=== PATIENT | male | born 1955 | race Caucasian/White ===

== ENCOUNTER 2019-10-09 18:52 | Emergency (ER) | payer SELFPAY ==
--- NOTE | 2019-10-09 20:56 | ER Document Report ---
ED Medical Screen (RME) - General Chief Complaint: Abdominal Pain Stated Complaint: SHORTNESS OF BREATH, LEFT FLANK PAIN Time Seen by Provider: 10/09/19 20:54 Mode of Arrival: Ambulatory Information source: Patient Notes: 64-year-old male with history of kidney stones presents emergency department with complaints of left flank pain radiating to his left lower quad. Denies fever vomiting diarrhea. Denies pain with void denies hematuria. Also complains of shortness of breath. Denies chest pain. Respiratory rate even unlabored left flank very tender to palpate I have greeted and performed a rapid initial assessment of this patient. A comprehensive ED assessment and evaluation of the patient, analysis of test results and completion of the medical decision making process will be conducted by additional ED providers. TRAVEL OUTSIDE OF THE [place] IN LAST 30 DAYS: No Physical Exam - Vital signs Vitals: Temp Pulse Resp BP Pulse Ox 97.9 F 69 16 158/84 H 98 10/09/19 19:35 10/09/19 19:35 10/09/19 19:35 10/09/19 19:35 10/09/19 19:35 Course - Vital Signs Vital signs: Temp Pulse Resp BP Pulse Ox 97.9 F 69 16 158/84 H 98 10/09/19 19:35 10/09/19 19:35 10/09/19 19:35 10/09/19 19:35 10/09/19 19:35
[2019-10-09 22:04] LABS: ABSOLUTE LYMPHOCYTES (AUTO) 1.1 10^3/uL (0.5-4.7); ABSOLUTE MONOCYTES (AUTO) 0.9 10^3/uL (0.1-1.4); BASOPHILS % (AUTO) 0.2 % (0-2); EOSINOPHILS % (AUTO) 0.3 % (0-6); HEMATOCRIT 44.9 % (37.9-51.0); LYMPHOCYTES % (AUTO) 11.1 % (13-45); MEAN CORPUSCULAR HEMOGLOBIN 29.6 pg (27.0-33.4); MEAN CORPUSCULAR HGB CONC 33.4 g/dL (32.0-36.0); MEAN CORPUSCULAR VOLUME 89 fl (80-97); MONOCYTES % (AUTO) 8.9 % (3-13); PLATELET COUNT 197 10^3/uL (150-450); RED BLOOD COUNT 5.06 10^6/uL (4.35-5.55); RED CELL DISTRIBUTION WIDTH 14.3 % (11.5-14.0); SEGMENTED NEUTROPHILS % (AUTO) 79.5 % (42-78); TOTAL CELLS COUNTED % (AUTO) 100 %; WHITE BLOOD COUNT 10.1 10^3/uL (4.0-10.5)
[2019-10-09 22:08] LABS: APPEARANCE,URINE CLEAR; BILIRUBIN,URINE NEGATIVE (NEGATIVE); COLOR,URINE YELLOW; GLUCOSE, URINE NEGATIVE (NEGATIVE); KETONES,URINE 20 mg/dL (NEGATIVE); LEUKOCYTE ESTERASE,URINE NEGATIVE (NEGATIVE); NITRITE,URINE NEGATIVE (NEGATIVE); PROTEIN,URINE 30 mg/dL (NEGATIVE); URINE SPECIFIC GRAVITY 1.032; UROBILINOGEN,URINE NEGATIVE mg/dL (<2.0)
--- NOTE | 2019-10-09 22:13 | RADIOLOGY REPORT (SQ) ---
EXAM DESCRIPTION: Two-view chest CLINICAL HISTORY: 64 years Male, SOB COMPARISON: None. FINDINGS: Cardiomediastinal silhouette is not enlarged. Mild hyperinflation. Possible emphysematous changes more obvious in the right upper lobe compared to the left upper lobe. No acute lung pleural bone abnormality. IMPRESSION: Possible emphysema. No acute findings.
[2019-10-09 22:18] LABS: ALBUMIN 4.4 g/dL (3.5-5.0); ALKALINE PHOSPHATASE 90 U/L (38-126); ANION GAP 14 (5-19); ASPARTATE AMINO TRANSFERASE 24 U/L (17-59); BILIRUBIN,DIRECT 0.3 mg/dL (0.0-0.4); BILIRUBIN,TOTAL 0.5 mg/dL (0.2-1.3); BLOOD UREA NITROGEN 23 mg/dL (7-20); CALCIUM 9.6 mg/dL (8.4-10.2); CARBON DIOXIDE 24 mmol/L (22-30); CHLORIDE 105 mmol/L (98-107); GLUCOSE 106 mg/dL (75-110); POTASSIUM 4.1 mmol/L (3.6-5.0); TOTAL PROTEIN 7.6 g/dL (6.3-8.2)
--- NOTE | 2019-10-09 22:23 | RADIOLOGY REPORT (SQ) ---
EXAM DESCRIPTION: CLINICAL HISTORY: 64 years Male LEFT FLANK PAIN COMPARISON: None TECHNIQUE: Axial images without IV contrast. Sagittal coronal reconstruction. This exam was performed according to our departmental dose-optimization program, which includes automated exposure control, adjustment of the mA and/or kV according to patient size and/or use of iterative reconstruction technique.. FINDINGS: Lung bases are unremarkable. Mild fatty liver. Spleen, pancreas, biliary system, adrenal glands, para-aortic regions are unremarkable. Mild atherosclerotic aorta mainly distally.. Mild atherosclerotic origin of both renal arteries greater on the right. Normal size kidneys. Question minimal right renal caliectasis versus presence of small parapelvic cysts. There is moderate left hydronephrosis predominantly lower pole. Possibly of additional small left renal parapelvic cysts is not excluded. The proximal left ureter is dilated. There is a stone in the mid left ureter level off the iliac crests. Measures 4.3 x 3.6 mm in transverse and AP diameter. 7.4 mm in length. Associated with thickening of the ureteric wall in that region. Mildly increased colonic fluid without significant dilatation. Small bowel loops are unremarkable. Moderate stenosis at L4-5 with greater right foraminal stenosis. CT of the pelvis demonstrates unremarkable urinary bladder. Prostate not enlarged. Bowel loops are unremarkable. No adenopathy or free fluid. IMPRESSION: 1. Subacute left hydronephrosis and proximal left hydroureter caused by mildly large stone in the mid left ureter. Thickening of the wall of the ureter adjacent to the stone. Very minimal left renal swelling. 2. Cystic structures in the right kidney represent either minimal caliectasis or small parapelvic cysts. No overt acute right renal abnormality. 3. Fatty liver. 4. Atherosclerotic disease including origin of both renal arteries greater on the right.
--- NOTE | 2019-10-09 23:16 | ER Document Report ---
Doctor's Note Notes: 10/09/19 23:15 64-year-old male patient that I was asked to re-round on as he is still waiting in the lobby. Results reviewed. Patient has a kidney stone with hydronephrosis and hydroureter. Orders placed for pain medication, nausea medication and IV fluids. Charge nurse made aware of patient's status.
[2019-10-09] MEDS ORDERED: KETOROLAC TROMETHAMINE INJ/PF 30 MG/1 ML SDV IV ONE (23:17)
[2019-10-09] MEDS ORDERED: ONDANSETRON HCL INJ/PF 4 MG/2 ML SDV IV ONE (23:17)
[2019-10-09] MEDS ORDERED: NORMAL SALINE 1000 ML 1,000 ML IV ONE (23:17)
[2019-10-10] MEDS ORDERED: TAMSULOSIN HCL 0.4 MG CAP.SR.24H PO ONE (00:03)
[2019-10-10] MEDS ORDERED: NORMAL SALINE 1000 ML 1,000 ML IV ONE (00:07)
[2019-10-10] MEDS ORDERED: OXYCODONE-ACETAMINOPHEN 5-325 MG TABLET PO ONE (00:08)
[2019-10-10] MEDS ORDERED: PROMETHAZINE HCL 25 MG TABLET PO ONE (00:08)
--- NOTE | 2019-10-10 01:25 | ER Document Report ---
ED GI/ - General Chief Complaint: Abdominal Pain Stated Complaint: SHORTNESS OF BREATH, LEFT FLANK PAIN Time Seen by Provider: 10/09/19 20:54 Primary Care Provider: ULISES BARTON MD [NO LOCAL MD] - Follow up tomorrow Mode of Arrival: Ambulatory Information source: Patient Notes: 64-year-old male presented to ED for complaint of left flank pain radiating to left lower quadrant. He denies any fever nausea or vomiting. He does have a history of kidney stones. He states he did not have any pain or discomfort with urination and no blood in his urine. He states that the pain does cause him to be short of breath at times. TRAVEL OUTSIDE OF THE [place] IN LAST 30 DAYS: No - HPI Patient complains to provider of: Flank pain - Left Onset: Yesterday Timing/Duration: Persistent Quality of pain: Sharp, Throbbing Severity at maximum: Severe Severity in ED: Moderate Pain Level: 4 Location: Left flank Associated symptoms: Other - Flank pain history of kidney stones he did have a positive CT for kidney stone before I examined the patient Exacerbated by: Movement, Walking Relieved by: Denies Similar symptoms previously: Yes Recently seen / treated by doctor: No - Related Data Allergies/Adverse Reactions: No Known Allergies Allergy (Verified 10/09/19 23:31) Past Medical History - General Information source: Patient - Social History Smoking Status: Never Smoker Cigarette use (# per day): No Chew tobacco use (# tins/day): No Smoking Education Provided: No Frequency of alcohol use: None Drug Abuse: None Occupation: Referred Lives with: Family Family History: Reviewed & Not Pertinent Patient has suicidal ideation: No Patient has homicidal ideation: No - Past Medical History Cardiac Medical History: Reports: None Pulmonary Medical History: Reports: None EENT Medical History: Reports: None Neurological Medical History: Reports: None Endocrine Medical History: Reports: None Renal/ Medical History: Reports: Hx Kidney Stones Malignancy Medical History: Reports None GI Medical History: Reports: None Musculoskeletal Medical History: Reports None Skin Medical History: Reports None Psychiatric Medical History: Reports: None Traumatic Medical History: Reports: None Infectious Medical History: Reports: None Surgical Hx: Negative Past Surgical History: Reports: None - Immunizations Immunizations up to date: Yes Hx Diphtheria, Pertussis, Tetanus Vaccination: Yes Review of Systems - Review of Systems Constitutional: No symptoms reported EENT: No symptoms reported Cardiovascular: No symptoms reported Respiratory: No symptoms reported Gastrointestinal: No symptoms reported Genitourinary: Flank pain Male Genitourinary: No symptoms reported Musculoskeletal: No symptoms reported Skin: No symptoms reported Hematologic/Lymphatic: No symptoms reported Neurological/Psychological: No symptoms reported -: Yes All other systems reviewed and negative Physical Exam - Vital signs Vitals: Temp Pulse Resp BP Pulse Ox 97.9 F 69 16 158/84 H 98 10/09/19 19:35 10/09/19 19:35 10/09/19 19:35 10/09/19 19:35 10/09/19 19:35 Interpretation: Normal - General General appearance: Appears well, Alert - HEENT Head: Normocephalic, Atraumatic Eyes: Normal Pupils: PERRL - Respiratory Respiratory status: No respiratory distress Chest status: Nontender Breath sounds: Normal Chest palpation: Normal - Cardiovascular Rhythm: Regular Heart sounds: Normal auscultation Murmur: No - Abdominal Inspection: Normal Distension: No distension Bowel sounds: Normal Tenderness: Nontender Organomegaly: No organomegaly - Back Back: Normal, CVA tenderness - Left CVA - Extremities General upper extremity: Normal inspection, Nontender, Normal color, Normal ROM, Normal temperature General lower extremity: Normal inspection, Nontender, Normal color, Normal ROM, Normal temperature, Normal weight bearing. No: Yvonne's sign - Neurological Neuro grossly intact: Yes Cognition: Normal Orientation: AAOx4 [place] Coma Scale Eye Opening: Spontaneous [place] Coma Scale Verbal: Oriented [place] Coma Scale Motor: Obeys Commands Trace Coma Scale Total: 15 Speech: Normal Motor strength normal: LUE, RUE, LLE, RLE Sensory: Normal - Psychological Associated symptoms: Normal affect, Normal mood - Skin Skin Temperature: Warm Skin Moisture: Dry Skin Color: Normal Course - Re-evaluation Re-evalutation: 10/10/19 07:[address] with patient. Patient did have a left ureteral stone with hydronephrosis. Patient was treated with IV fluids, Toradol, Percocet, Flonase, Zofran, and Phenergan. He was discharged home with prescriptions for ibuprofen Percocet Flonase Zofran and Phenergan. He was instructed to follow-up with a urologist. He was given the name of Dr. Barton for follow-up. His kidney stone was 4.3 x 3.6 mm with a length of 7.4 mm. - Vital Signs Vital signs: Temp Pulse Resp BP Pulse Ox 98.5 F 63 17 127/71 H 96 10/10/19 01:53 10/10/19 01:53 10/10/19 01:53 10/10/19 01:53 10/10/19 01:53 - Laboratory Result Diagrams: 10/09/19 21:40 10/09/19 21:40 Laboratory results interpreted by me: 10/09/19 10/09/19 10/09/19 21:40 21:40 21:40 RDW 14.3 H Lymph % (Auto) 11.1 L Seg Neutrophils % 79.5 H BUN 23 H Creatinine 1.63 H Est GFR ( Amer) 52 L Est GFR (MDRD) Non-Af 43 L Urine Protein 30 H Urine Ketones 20 H Urine Ascorbic Acid 40 H - Diagnostic Test Radiology reviewed: Image reviewed, Reports reviewed Discharge - Discharge Clinical Impression: Left ureteral stone, Hydronephrosis, left Condition: Stable Disposition: HOME, SELF-CARE Additional Instructions: KIDNEY STONE: You are passing or have passed a kidney stone. These stones are usually due to increased calcium or uric acid concentrations in your urine. Stones within the kidney itself are not painful. The pain occurs as the stone leaves the kidney to pass down the long tube, called the ureter, leading to the bladder. If the stone is small, it will usually pass by itself. Most patients can pass the stone at home. You will usually receive medications for pain, nausea or vomiting, and sometimes a medication to assist in passing the kidney stone. However, if the pain is very severe or if vomiting prevents you from taking oral pain medications, you may need to return for further treatment. Drink three or four quarts of fluids per day. You will be given pain medication (if needed) and urine strainers. Strain all your urine to see if the stone passes. If your doctor has asked you to bring the stone in for analysis, return with the stone once it has passed. Return if pain or vomiting become severe, if you develop a high fever, if you are unable to pass your urine, or if other unusual symptoms occur. TORADOL INJECTION: You have been given an injection of ketorolac tromethamine (Toradol). This is an excellent, safe drug for pain control. It also has potent antiinflamma tory action. You should have significant pain relief within about one hour. Toradol is not addicting and is non-sedating. It does not interfere with driving or work. Call or return if you develop itching, hives, shortness of breath, or rash. ANTINAUSEA MEDICATION: You have been given a medication to suppress nausea and vomiting. This type of medication can be given as a shot, pill, or suppository. It will usually last for many hours. Pills and shots usually last six to eight hours, suppositories last about 12 hours. For the typical illness, only one or two doses of the me dication may be necessary. Mild lightheadedness may occur. This type of medicine can cause dana wsiness. Do not drive or operate dangerous machinery while under its influence. Do not mix with alcohol. See your doctor at once if you have muscle spasms or tightness, or uncontrollable motions (particularly of the neck, mouth, or jaw). Persistent vomiting or severe lightheadedness should also be evaluated by the physician. ORAL NARCOTIC MEDICATION: You have been given a prescription for pain control. This medication is a narcotic. It's best taken with food, as nausea can result if taken on an empty stomach. Don't operate machinery or drive within six hours of taking this medication. Do not combine this medicine with alcohol, or with any medication which can cause sedation (such as cold tablets or sleeping pills) unless you get permission from the physician. Narcotics tend to cause constipation. If possible, drink plenty of fluids and eat a diet high in fiber and fruits. Please be aware that prescription narcotics also have the potential for abuse. People become addicted to these medications because of the general sense of wellbeing that they induce. This feeling along with a significant reduction in tension, anxiety, and aggression provides a stimulating seductive quality to these drugs. Once your pain is under control, we encourage you to discard your unused narcotics. FLOMAX (tamsulosin): Flomax is a medicine that shrinks the prostate gland. It helps relieve symptoms of benign prostatic hypertrophy, such as frequent urination, weak stream, and inadequate emptying. It has been shown to dilate the ureter (tube leading from the kidney to the bladder) and help in passing kidney stones Flomax usually causes no side effects. You may notice slight tiredness and dizziness for a few days. Some patients develop nasal congestion. Rarely, impotence can occur. If the symptoms are bothersome and don't improve with continued use, call your doctor. Contact your doctor or return if you have fainting spells, severe weakness or dizziness, shortness of breath, or rash. FOLLOW-UP CARE: If you have been referred to a physician for follow-up care, call the physicians office for an appointment as you were instructed or within the next two days. If you experience worsening or a significant change in your symptoms, notify the physician immediately or return to the Emergency Department at any time for re-evaluation. Prescriptions: Oxycodone HCl/Acetaminophen [Percocet 5-325 mg Tablet] 1 tab PO Q6HP PRN #10 tablet PRN Reason: Tamsulosin HCl [Flomax] 0.4 mg PO DAILY #7 capsule Promethazine HCl [Phenergan 25 mg Tablet] 25 mg PO Q6H PRN #15 tablet PRN Reason: Ondansetron [Zofran Odt 4 mg Tablet] 1 tab PO Q6H #15 tab.rapdis Forms: Elevated Blood Pressure, Return to Work Referrals: ULISES BARTON MD [NO LOCAL MD] - Follow up tomorrow
[2019-10-10 01:55] VITALS: BP 127/71
== END 2019-10-10 01:57 | disposition home or self-care (01) ==
LOC: ER 18:52
DX: N13.2 Hydronephrosis with renal and ureteral calculous obstruction (principal); R06.02 Shortness of breath
CPT/HCPCS: 99284; 96361; 96374; 96375; 36415; 85025; 80053; 81001; 84484; 71046; 74176; J1885; J2405; J7030 ×2